=== PATIENT | female | born 1945 | race Caucasian/White ===

== ENCOUNTER → 2017-07-03 | Outpatient (CLI) | payer MEDICARE ==
[~2017-07-03] MED LIST: ASPIR-TRIN325 MG; ATIVAN PO; AUGMENTIN PO; CALCIUM1 TAB.CHEW; CELEBREX; DIOVAN; ENABLEX7.5 MG; ORUDIS75 M1 PO; PRILOSEC; VICODIN 5/1 TAB 5/50 PO; ZETIA
--- NOTE | ~2017-07-03 | MY29 ---
[facility] A Service of [facility] RADIOLOGY TEXT RESULTS PATIENT: LAUREN MARION LOCATION: [facility] : 43 UNIT #: [id number] AGE: [address]: Nancy Brown MD SEX: F ORDER DR: [id number] [facility]. [place], [place] [address] [id number] O MR#: [id number] Acc #: [id number] NAME: LAUREN MARION : 1945 SEX: F STUDY DATE/TIME: 07/03/2017 13:12 UNIT: [facility] ROOM: STUDY DESCRIPTION: MY NICCI SCREENING W/ CAD BILAT Attending Physician: Nancy Brown M.D. Referring Physician: Nancy Brown M.D. Ordering Physician: Nancy Brown M.D. Primary Care Physician: Nancy Brown M.D. MEDICAL IMAGING REPORT This report is preliminary unless electronic signature is present EXAM Bilateral digital screening mammogram with CAD 07/03/2017 HISTORY 71-year-old female with family history of breast cancer in a sister. No personal history breast cancer. No current complaints. COMPARISON Bilateral screening mammogram 03/21/2016, 03/17/2015. FINDINGS CC and MLO views were obtained of each breast utilizing digital technique and reviewed with a FDA-approved CAD device. Scattered fibroglandular densities are present bilaterally. No suspicious nodule, architectural distortion or clustered microcalcification is seen. IMPRESSION 1. BIRADS 1. Negative screening mammogram. Routine screening mammogram is recommended 1 year. BIRADS: 1 Negative. Patients over the age of 40 are entered into a reminder system with target due date for the next mammogram. A result letter will also be sent to the patient. Dictated by... Melva Doe M.D. THIS IS AN ELECTRONICALLY VERIFIED REPORT [facility] A Service of [facility] RADIOLOGY TEXT RESULTS PATIENT: LAUREN MARION LOCATION: [facility] : 43 UNIT #: [id number] AGE: [address]: Nancy Brown MD SEX: F ORDER DR: Melva Doe M.D. at 07/05/2017 8:49 AM LLH/amber TD: 07/03/2017 22:07 JOB #: [id number] MEDICAL IMAGING REPORT Page 1 of 1 COPY
== END | disposition home or self-care (01) ==
LOC: CWCC 12:27
DX: Z12.31 Encounter for screening mammogram for malignant neoplasm of breast (principal); Z80.3 Family history of malignant neoplasm of breast
CPT/HCPCS: G0202